=== PATIENT | female | born 1960 | race Caucasian/White ===

== ENCOUNTER 2025-04-01 12:19 | Emergency (ER) | payer MEDICARE ==
[~2025-04-01] VITALS: Ht 160 cm; Wt 63.5 kg
[~2025-04-01 12:19] MED LIST: ASPIRIN81 MG PO; CLOPIDOGREL75 MG PO; DOXYCYCLINE HY100 MG PO; HYDROCODON-ACE1 EA12 PO; LOVASTATIN20 MG PO; NITROSTAT0.4 MG SL; OMEPRAZOLE40 MG PO
[2025-04-01 12:24] VITALS: TEMP 98.4
[2025-04-01] MEDS: Morphine 4mg INJECTION 4 MG/ML INJ IV STA (12:55)
[2025-04-01 13:42] LABS: BASOPHILS % 0.4 % (0.0-1.0); EOSINOPHILS % 0.6 % (0.0-6.0); LYMPHOCYTES % 32.8 % (18.0-39.1); MONOCYTES % 8.8 % (4.4-11.3); NEUTROPHILS % 57.0 % (38.7-80.0); RED CELL DISTRIBUTION WIDTH 14.3 % (11.7-14.4)
[2025-04-01 13:59] LABS: EST GLOMERULAR FILTRATION RATE 86.0 ML/MIN (>=60)
[2025-04-01] MEDS ORDERED: IOPAMIDOL 370 MG/ML 100 ML INFUS..BTL INJ ONE (14:11)
[2025-04-01 14:35] VITALS: PULSE 71; RESP 16; O2SAT 97
[2025-04-01] MEDS: Morphine 4mg INJECTION 4 MG/ML INJ IV ONE (15:52)
[2025-04-01] MEDS: LIDOCAINE 1% 10 ML MULTIDOSE VIAL IJ ONE (17:29)
[2025-04-01] MEDS ORDERED: AMOX TR-K CLV1 EAC2 PO (17:33)
[2025-04-02] MEDS ORDERED: VITAMIN D310 MCG PO (10:59)
[2025-04-02] MEDS ORDERED: VITAMIN C1000 MG PO (10:59)
== END 2025-04-01 17:51 | disposition home or self-care (01) ==
LOC: ER 12:25
DX: K62.89 Other specified diseases of anus and rectum (principal); K61.1 Rectal abscess; N32.81 Overactive bladder; Z85.42 Personal history of malignant neoplasm of other parts of uterus
CPT/HCPCS: 36415; 46040; 72193; 80048; 85025; 99284; J2270; Q9967

== ENCOUNTER → 2025-04-03 | Day surgery (SDC) | payer MEDICARE ==
[~2025-04-03] MED LIST changes: +ACETAMINOPHEN 1000 MG/100 ML 100 ML IV ONE; +AMOX TR-K CLV1 EAC2 PO; +DEXAMETHASONE SOD PHOS INJ 4 MG/ML SDV ONE; +FENTANYL CITRATE/PF 100MCG/2 ML INJ ONE; +LIDOCAINE HCL 2% LOCAL INJ 5 ML SDV VIAL INJ ONE; +METOCLOPRAMIDE HCL 10 MG/2ML VIAL ONE; +ONDANSETRON HCL INJ 2MG/ML 2ML 2 MG/ML VIAL ONE; +PROPOFOL IV EMULSION 10 MG/ML 20 ML VIAL ONE; +SEVOFLURANE INHAL SOLN 250 ML PEN BTL ONE; +VITAMIN C1000 MG PO; +VITAMIN D310 MCG PO
[2025-04-03] MEDS: LACTATED RINGER'S 1,000 ML ONE (08:53)
[2025-04-03] MEDS: ONDANSETRON HCL INJ 2MG/ML 2ML 2 MG/ML VIAL ONE (11:16)
[2025-04-03] MEDS: METOCLOPRAMIDE HCL 10 MG/2ML VIAL IV ONE (11:57)
[2025-04-03] MEDS: ONDANSETRON HCL INJ 2MG/ML 2ML 2 MG/ML VIAL IV ONE (11:58)
[2025-04-03 12:15] VITALS: BP 120/59; PULSE 67; RESP 16; O2SAT 98
== END | disposition home or self-care (01) ==
LOC: OR 08:31
PROVIDERS: ATTEND Surgery
DX: K61.1 Rectal abscess (principal); G47.33 Obstructive sleep apnea (adult) (pediatric); I25.10 Atherosclerotic heart disease of native coronary artery without angina pectoris; R01.1 Cardiac murmur, unspecified; J44.9 Chronic obstructive pulmonary disease, unspecified; K21.9 Gastro-esophageal reflux disease without esophagitis; F31.9 Bipolar disorder, unspecified; F17.210 Nicotine dependence, cigarettes, uncomplicated; Z99.81 Dependence on supplemental oxygen; Z01.810 Encounter for preprocedural cardiovascular examination; Z79.02 Long term (current) use of antithrombotics/antiplatelets; Z95.5 Presence of coronary angioplasty implant and graft
CPT/HCPCS: 87071; 87075; 87205; 93005; J0694; J1100; J2003; J2405; J2765